=== PATIENT | male | born 1940 | race Caucasian/White ===

== ENCOUNTER 2016-07-09 11:48 | Outpatient (CLI) | payer OTHER | END 2016-07-09 19:56 | disposition home or self-care (01) | LOC: SRD 11:48 | PROVIDERS: ATTEND Internal Medicine | DX: Z01.818 Encounter for other preprocedural examination (principal); C18.9 Malignant neoplasm of colon, unspecified; R05 Cough; M47.899 Other spondylosis, site unspecified; I70.90 Unspecified atherosclerosis | CPT/HCPCS: 71020-TC ==

== ENCOUNTER 2016-07-15 06:43 | Inpatient (IN) | payer OTHER ==
[~2016-07-15] VITALS: Ht 167.6 cm; Wt 59.9 kg
[2016-07-15] MEDS ORDERED: AMLO5TAB4 PO (07:53)
[2016-07-15] MEDS ORDERED: DOXA2TAB PO (07:53)
[2016-07-15] MEDS ORDERED: ASPI-1063 PO (07:53)
[2016-07-15] MEDS ORDERED: LOSA100T11 PO (07:53)
[2016-07-15] MEDS ORDERED: POTA8TAB4 PO (07:53)
[2016-07-15] MEDS ORDERED: PRO20 PO (07:53)
[2016-07-15] MEDS ORDERED: FURO-150 PO (07:53)
[2016-07-15] MEDS ORDERED: LR 1,000 ML IV SCH (10:47)
[2016-07-15] MEDS ORDERED: HYDROmorphone 2 MG/ML VIAL IVP PRN ×2 (11:00)
[2016-07-15] MEDS ORDERED: HYDROmorphone 1 MG INJ. 1 MG/ML AMPUL IVP PRN (11:00)
[2016-07-15] MEDS ORDERED: ONDANSETRON HCL 4 MG/2 ML VIAL IVP PRN ×2 (11:00→14:15)
[2016-07-15] MEDS ORDERED: ePHEDrine sulfate 50 MG/ML VIAL IVP PRN (11:00)
[2016-07-15] MEDS ORDERED: MIDAZOLAM HCL 5 MG/5 ML VIAL ONE (14:00)
[2016-07-15] MEDS ORDERED: ceFAZolin SODIUM 1 GM VIAL ONE (14:00)
[2016-07-15] MEDS ORDERED: NS 100 ML BAG IV ONE (14:00)
[2016-07-15] MEDS ORDERED: SEVOFLURANE 15 MIN GAS INH ONE (14:00)
[2016-07-15] MEDS ORDERED: PROPOFOL 200MG/ 20ML VIAL (DIPRIVAN) IV ONE (14:00)
[2016-07-15] MEDS ORDERED: fentaNYL CITRATE/PF 100 MCG/2 ML AMP ONE (14:00)
[2016-07-15] MEDS ORDERED: BUPIVACAINE LIPOSOME/PF 266 MG/20 ML VIAL INFIL ONE (14:00)
[2016-07-15] MEDS ORDERED: ONDANSETRON HCL 4 MG/2 ML VIAL ONE (14:00)
[2016-07-15] MEDS ORDERED: LR 1,000 ML IV.SOLN IV ONE (14:00)
[2016-07-15] MEDS ORDERED: ACETAMINOPHEN 325 MG TABLET PO PRN ×2 (14:15)
[2016-07-15 14:29] LABS: BASOPHILS % (AUTO) 0.4 % (0.0-2.0); EOSINOPHILS % (AUTO) 0.3 % (0.0-4.0); HEMATOCRIT 26.5 % (36-54); HEMOGLOBIN 8.7 g/dL (14.0-18.0); LYMPHOCYTES # (AUTO) 0.2 K/uL (1.0-5.5); LYMPHOCYTES % (AUTO) 2.7 % (20.5-51.5); MEAN CORPUSCULAR HEMOGLOBIN 26 pg (27-31); MEAN CORPUSCULAR HGB CONC 33 % (32-36); MEAN CORPUSCULAR VOLUME 81 fL (79.0-98.0); MONOCYTES # (AUTO) 0.1 K/uL (0.0-1.0); MONOCYTES % (AUTO) 1.6 % (1.7-9.3); NEUTROPHILS # (AUTO) 8.9 K/uL (1.8-7.7); PLATELET COUNT (AUTO) 307 K/uL (130-430); RED BLOOD CELL COUNT(AUTO) 3.29 MIL/uL (4.2-6.2); RED CELL DISTRIBUTION WIDTH 18.1 % (9.0-15.0); WHITE BLOOD COUNT (AUTO) 9.2 K/uL (4.8-10.8)
[2016-07-15] MEDS ORDERED: ALBUTEROL MDI INHALATION 8 GM INH INH PRN (14:30)
[2016-07-15 15:00] VITALS: BP 140/74; PULSE 78; RESP 17; TEMP 97.4; O2SAT 91
--- NOTE | 2016-07-15 15:14 | NUR ---
post op admission notes: patient to room 124B,report given by palma pacu nurse. placed on o2 2l/,c,good saturation.with small dressing at left x2,mid abd x2 and right x1,intact. no bleeding noted. routine post op vital signs taken.afebrile and stable. with ivf on going at left forearm and right forearm saline lock. patient moaning,will give iv pain meds as ordered.patient situated.
[2016-07-15] MEDS: MORPHINE 4 MG/ML INJ. SYRINGE IVP PRN ×2 (15:41→20:27)
[2016-07-15] MEDS ORDERED: MORPHINE 4 MG/ML INJ. SYRINGE ONE (15:42)
[2016-07-15 15:43] VITALS: BP 140/74; PULSE 78; RESP 17; TEMP 97.4; O2SAT 91
[2016-07-15 16:09] VITALS: BP 154/78; PULSE 71; RESP 17; TEMP 97.8; O2SAT 93
[2016-07-15] MEDS: LR 1,000 ML IV SCH (16:12)
--- NOTE | 2016-07-15 16:30 | NUR ---
ROUNDS: ON O2L/NC,GOOD SATURATION. NO DISTRESS. FAMILY AT BEDSIDE.
[2016-07-15 17:28] VITALS: BP 136/76; PULSE 71
--- NOTE | 2016-07-15 18:25 | NUR ---
CLOSING NOTES: PATIENT REFUSED DINNER FOR NOW. PATIENT WENT BACK TO SLEEP.WILL ENDORSED TO NIGHT NURSE,PT IN STABLE CONDITION.
[2016-07-15] MEDS: ALBUTEROL SULFATE 0.083% 2.5 MG/3 ML VIAL.NEB INH PRN (19:31)
[2016-07-15 19:35] VITALS: BP 151/86; PULSE 83; RESP 18; TEMP 97.6; O2SAT 98
--- NOTE | 2016-07-15 19:35 | NUR ---
INITIAL NOTES; Pt is a/ox4, resting in bed. Vital signs 97.6, 18, 151/86,83,M2WYC=50% 2L N/C OXY. Pt denies any pain,sob,or any acute distress this time. Lung sounds clear throughout all lobes. Drsg cdi of abdominal site. Abdomen soft & nondistended, bs present. IV site of left f/a patent and rt hand patent, no s/s any infiltration noted. IVF LR @ 80ml/hr. Alfred lower pedis present upon palp. Armando cath w/ gravity drains yellow urine output. Fall precaution in place. All safety measures in place. Discussed poc, all safety measures, or if experiencing chest pain, pain,sob, or any acute distress to use call light for assistance, pt verbalized understanding. Encouraged to use Incentive spirometry 10x/hr while awakes, pt demonstrated good teaching back and verbalized understanding. SCD alfred lower extremities. Call light w/in reach. Continue to monitor pt.
--- NOTE | 2016-07-15 20:27 | NUR ---
PAIN MEDICATION ADMINISTERED -Pt is c/o abdominal pain, gave Morphine Sulfate 4mg IVP. Fall precaution in place. All safety measures in place. Call light w/in reach. Continue to monitor pt.
[2016-07-15] MEDS: cefOXitin SODIUM 2 GM in D5W 100 ML IV SCH (21:02)
--- NOTE | 2016-07-15 22:03 | NUR ---
ROUNDS; Pt is resting in bed. No s/s any pain,sob,or any acute distress noted. IV site patent, no s/s any infiltration noted. IVF LR @ 80ml/hr. Armando cath w/ gravity drains yellow urine output. Fall precaution in place. All safety measures in place. Call light w/in reach. Continue to monitor pt.
[2016-07-15] MEDS: HYDROcodone/ACETAMIN 5-325 MG TAB (NORCO/ VICODIN) PO PRN (22:56)
--- NOTE | 2016-07-15 22:56 | NUR ---
PAIN MEDICATION ADMINISTERED -Pt is c/o abdominal pain, gave [place] 5-325mg po. Fall precaution in place. All safety measures in place. Call light w/in reach. Continue to monitor pt.
--- NOTE | 2016-07-15 23:55 | NUR ---
ROUNDS; Pt is resting in bed. Vital signs stable. No s/s any pain,sob,or any acute distress noted. IV site patent, no s/s any infiltration noted. IVF LR @ 80ml/hr. Armando cath w/ gravity drains yellow urine output. Fall precaution in place. All safety measures in place. Call light w/in reach. Continue to monitor pt.
[2016-07-16] VITALS: BP 131/82; PULSE 79; RESP 18; TEMP 98.3; O2SAT 97
[2016-07-16 04:14] VITALS: BP 134/77; PULSE 69; RESP 19; TEMP 97.6; O2SAT 99
[2016-07-16] MEDS: LR 1,000 ML IV SCH ×2 (05:41→21:05)
[2016-07-16] MEDS: cefOXitin SODIUM 2 GM in D5W 100 ML IV SCH ×2 (05:42→14:04)
[2016-07-16] MEDS: MORPHINE 4 MG/ML INJ. SYRINGE IVP PRN (05:42)
--- NOTE | 2016-07-16 05:42 | NUR ---
INCONTINENT OF LARGE SEMISOFT STOOL/ PAIN MEDICATION ADMINISTERED/ REMOVED YOON CATH -Pt is c/o abdominal pain, gave Morphine Sulfate 4mg IVP. Provided perineal care and removed Yoon cath and instructed pt to inform nurse when 1st void, pt verbalized understanding. Now, pt is cleaned and dry. Fall precaution in place. All safety measures in place. Call light w/in reach. Continue to monitor pt.
--- NOTE | 2016-07-16 05:45 | NUR ---
REFUSED TO AMBULATE THIS TIME -ASKED PT TO GET OUT BED AND TO AMBULATE PER MD. PT REFUSED TO GET OUT BED OR TO DANGLE ON BED EVEN AFTER EXPLAINING BENEFITS/RISKS OF AMBULATORY OR GET OUT BED, PT IS STILL REFUSED TO GET OUT BED OR TO DANGLE FEET. PT STATED,'' I'M TOO TIRED AND WEAK TO GET UP.''
--- NOTE | 2016-07-16 07:01 | NUR ---
CLOSING NOTES; Pt is resting in bed. Pt denies any pain,sob,or any acute distress this time. Drsg cdi of abdominal site. IV site of left f/a patent and rt hand patent, no s/s any infiltration noted. IVF LR @ 80ml/hr. Fall precaution in place. All safety measures in place. Call light w/in reach.
--- NOTE | 2016-07-16 08:00 | NUR ---
Rounds to patient. Good affect and color of skin. Patient eating liquid breakfast independently. Says he feels well.
--- NOTE | 2016-07-16 08:16 | NUR ---
Nutrition Update Shantanu Scale 17 noted. Pt admitted for carcinoma in situ colon. Diet: clear liquid, no red BMI: 21.5 kg/m2 RD to follow per nutrition care standards.
[2016-07-16 08:40] LABS: BASOPHILS % (AUTO) 0.1 % (0.0-2.0); HEMATOCRIT 24.5 % (36-54); HEMOGLOBIN 7.8 g/dL (14.0-18.0); LYMPHOCYTES # (AUTO) 0.6 K/uL (1.0-5.5); MEAN CORPUSCULAR HEMOGLOBIN 26 pg (27-31); MEAN CORPUSCULAR HGB CONC 32 % (32-36); MEAN CORPUSCULAR VOLUME 82 fL (79.0-98.0); MONOCYTES % (AUTO) 8.9 % (1.7-9.3); NEUTROPHILS # (AUTO) 9.9 K/uL (1.8-7.7); PLATELET COUNT (AUTO) 278 K/uL (130-430); RED CELL DISTRIBUTION WIDTH 17.9 % (9.0-15.0); WHITE BLOOD COUNT (AUTO) 11.5 K/uL (4.8-10.8)
[2016-07-16 08:53] LABS: ANION GAP 6 (5-15); CHLORIDE 107 mmol/L (98-107); GLUCOSE 108 mg/dL (70-99); POTASSIUM 5.1 mmol/L (3.5-5.1); SODIUM SERUM 140 mmol/L (136-145)
[2016-07-16 08:54] LABS: ALANINE AMINOTRANSFERASE 60 U/L (12-78); ALBUMIN 2.7 g/dL (3.4-4.8); ASPARTATE AMINOTRANSFERASE 52 U/L (10-37); CALCIUM 8.7 mg/dL (8.4-11.0); TOTAL BILIRUBIN 0.5 mg/dL (0.0-1.0); TOTAL PROTEIN, SERUM 6.1 g/dL (6.4-8.3); UREA NITROGEN, BLOOD 27 mg/dL (8-21)
[2016-07-16] MEDS: HYDROcodone/ACETAMIN 5-325 MG TAB (NORCO/ VICODIN) PO PRN ×3 (09:43→21:06)
[2016-07-16] MEDS: DOXAZOSIN MESYLATE 2 MG TABLET PO SCH (09:44)
[2016-07-16] MEDS: amLODIPine BESYLATE 5 MG TABLET PO SCH (09:44)
[2016-07-16] MEDS: FLUoxetine HCL 20 MG CAPSULE (PROzac) PO SCH (09:44)
--- NOTE | 2016-07-16 10:00 | NUR ---
PATIENT ROUNDS. PRN PAIN MED FOLLOW UP. NEEDS MET AT THIS TIME.
[2016-07-16 12:00] VITALS: BP 118/78; PULSE 77; RESP 18; TEMP 99.4; O2SAT 96
--- NOTE | 2016-07-16 12:00 | NUR ---
DOCTOR DANGELO SHERIDAN. ORDERS FOR BLOOD 2 UNITS THIS DAY.
[2016-07-16] MEDS ORDERED: FUROSEMIDE 20 MG/2 ML VIAL IVP ONE (12:30)
--- NOTE | 2016-07-16 14:00 | NUR ---
ROUNDS TO PATIENT. NEEDS MET AT THIS TIME. REFUSED RESPIRATORY INTERVENTION PER BIZ.
--- NOTE | 2016-07-16 15:00 | NUR ---
DOCTOR PRADHAN ROUNDS TO PATIENT. REQUESTS DOCTOR CHILDS PATIENT IS HMO.
[2016-07-16] MEDS ORDERED: ALBUTEROL SULFATE 0.083% 2.5 MG/3 ML VIAL.NEB INH ONE (15:15)
[2016-07-16 16:00] VITALS: BP 119/77; PULSE 80; RESP 16; TEMP 98.4; O2SAT 95
--- NOTE | 2016-07-16 16:00 | NUR ---
AMBULATE PT SIT UP IN BED, STAND UP, TRIED TO AMBULATE BUT STILL WEAK, NOTIFIED DR PIERSON, ORDERED P. THERAPY. VERIFIED ALSO BLOOD ORDERED. TO TRANSFUSE 2 UNIT PRBC.
--- NOTE | 2016-07-16 18:51 | NUR ---
HANDOFF REPORT PREPARED FOR NOC NURSE.
[2016-07-16 19:50] VITALS: BP 121/80; PULSE 80; RESP 18; TEMP 97.5; O2SAT 97
--- NOTE | 2016-07-16 19:50 | NUR ---
INITIAL NOTES; Pt is a/ox4, resting in bed. Vital signs 97.5, 18, 121/80, 80, C3IVN=59% 2L N/C OXY. Pt denies any pain,sob,or any acute distress this time. Lung sounds clear throughout all lobes. Drsg cdi of abdominal site. Abdomen soft & nondistended, bs present. IV site of left f/a patent and rt hand patent, no s/s any infiltration noted. IVF LR @ 80ml/hr. Alfred lower pedis present upon palp. Urinal is at bedside. Fall precaution in place. All safety measures in place. Discussed poc, all safety measures, or if experiencing chest pain, pain,sob, or any acute distress to use call light for assistance, pt verbalized understanding. Encouraged to use Incentive spirometry 10x/hr while awakes, pt demonstrated good teaching back and verbalized understanding. SCD alfred lower extremities. Call light w/in reach. Continue to monitor pt.
--- NOTE | 2016-07-16 23:20 | NUR ---
BT INITIATION: 1ST BLOOD PRBC TRANSFUSION Consent signed per patient agreeing to administration of blood. Blood has been type and crossmatched. Blood sent from blood bank. Information on unit of blood checked against patient wristband at bedside by two nurses. All information matches. Patient or responsible constitution party informed of potential complications associated with blood transfusion. Informed of possible transfusion reaction symptoms. Aware of need to notify nurse at once of itching, shortness of breath, flushing, feeling of impending doom, or other symptoms not previously present. Vital signs taken within 5 minutes prior to initiation of transfusion (97.8, 18,67, 123/69, s9msy=20%). RN will remain with patient for first 15 minutes of transfusion at which time vital signs will be re-assessed.
--- NOTE | 2016-07-16 23:35 | NUR ---
POST 15 MINS OF BLOOD TRANSFUSION -Pt denies any itching, shortness of breath, flushing, feeling of impending doom, or other symptoms not previously present. No s/s any blood complication noted. Vital signs taken after 15 minutes of transfusion (97.0, 18,70, 124/74, f0ied=35%). Call light w/in reach. Continue to monitor pt.
--- NOTE | 2016-07-17 00:35 | NUR ---
ROUNDS; 1ST PRBC IS STILL INFUSING Pt is resting in bed. No s/s any blood complication noted. No s/s any pain,sob,or any acute distress noted. IV site patent, no s/s any infiltration noted. Fall precaution in place. All safety measures in place. Call light w/in reach. Continue to monitor pt.
[2016-07-17 01:05] VITALS: BP 124/74; PULSE 70; RESP 16; TEMP 97; O2SAT 96
--- NOTE | 2016-07-17 01:35 | NUR ---
ROUNDS; 1ST PRBC COMPLETED Pt is resting in bed. Vital signs stable 147/83, 97.0, 95, 20, o0mof=280 2 L n/c oxy. No s/s any rxn or complication noted. Pt denies itchiness, any pain,sob,or any acute distress noted. IV site patent, no s/s any infiltration noted. Fall precaution in place. All safety measures in place. Call light w/in reach. Continue to monitor pt.
[2016-07-17] MEDS ORDERED: FUROSEMIDE 20 MG/2 ML VIAL ONE (01:55)
--- NOTE | 2016-07-17 01:55 | NUR ---
LASIX 20 MG IVP X1 GIVEN AFTER 1ST UNIT OF PRBC PER MD ORDERED. PU=650/83, 95.
--- NOTE | 2016-07-17 02:50 | NUR ---
BT INITIATION: 2ND PRBC TRANSFUSION Consent signed per patient agreeing to administration of blood. Blood has been type and crossmatched. Blood sent from blood bank. Information on unit of blood checked against patient wristband at bedside by two nurses. All information matches. Patient or responsible libertarian informed of potential complications associated with blood transfusion. Informed of possible transfusion reaction symptoms. Aware of need to notify nurse at once of itching, shortness of breath, flushing, feeling of impending doom, or other symptoms not previously present. Vital signs taken within 5 minutes prior to initiation of transfusion (97.5, 18, 75, 123/78, m9zzy=52%). RN will remain with patient for first 15 minutes of transfusion at which time vital signs will be re-assessed.
--- NOTE | 2016-07-17 03:05 | NUR ---
POST 15 MINS OF BLOOD TRANSFUSION -Pt denies any itching, shortness of breath, flushing, feeling of impending doom, or other symptoms not previously present. No s/s any blood complication noted. Vital signs taken after 15 minutes of transfusion (97.8,18, 133/96, 72, e5qvt=93%). Call light w/in reach. Continue to monitor pt.
[2016-07-17 04:52] VITALS: BP 151/88; PULSE 76; RESP 18; TEMP 98; O2SAT 97
--- NOTE | 2016-07-17 05:20 | NUR ---
ROUNDS; 2ND UNIT OF PRBC COMPLETED Pt is resting in bed. Vital signs stable 97.8, 18,68,146/84, q8con=74% 2 L n/c oxy. No s/s any rxn or complication noted. Pt denies itchiness, any pain,sob,or any acute distress noted. IV site patent, no s/s any infiltration noted. Fall precaution in place. All safety measures in place. Call light w/in reach. Continue to monitor pt.
--- NOTE | 2016-07-17 06:50 | NUR ---
CLOSING NOTES; Pt is resting in bed. Pt denies any pain,sob,or any acute distress this time. IV site of left f/a and rt hand patent, no s/s any infiltration noted. IVF LR @ 80ml/hr. Urinal is at bedside. Fall precaution in place. All safety measures in place. SCD bonifacio lower extremities. Call light w/in reach.
[2016-07-17 07:32] LABS: BASOPHILS % (AUTO) 0.3 % (0.0-2.0); EOSINOPHILS # (AUTO) 0.1 K/uL (0.0-0.4); EOSINOPHILS % (AUTO) 1.6 % (0.0-4.0); HEMATOCRIT 30.5 % (36-54); HEMOGLOBIN 9.8 g/dL (14.0-18.0); LYMPHOCYTES # (AUTO) 0.9 K/uL (1.0-5.5); LYMPHOCYTES % (AUTO) 9.2 % (20.5-51.5); MEAN CORPUSCULAR HEMOGLOBIN 27 pg (27-31); MEAN CORPUSCULAR HGB CONC 32 % (32-36); MEAN CORPUSCULAR VOLUME 83 fL (79.0-98.0); MONOCYTES # (AUTO) 0.9 K/uL (0.0-1.0); MONOCYTES % (AUTO) 9.2 % (1.7-9.3); NEUTROPHILS # (AUTO) 7.4 K/uL (1.8-7.7); NEUTROPHILS % (AUTO) 79.7 % (40.0-70.0); PLATELET COUNT (AUTO) 271 K/uL (130-430); RED BLOOD CELL COUNT(AUTO) 3.66 MIL/uL (4.2-6.2); RED CELL DISTRIBUTION WIDTH 16.2 % (9.0-15.0); WHITE BLOOD COUNT (AUTO) 9.3 K/uL (4.8-10.8)
[2016-07-17 07:53] LABS: ALANINE AMINOTRANSFERASE 56 U/L (12-78); ALBUMIN 2.7 g/dL (3.4-4.8); ANION GAP 6 (5-15); ASPARTATE AMINOTRANSFERASE 41 U/L (10-37); CALCIUM 8.7 mg/dL (8.4-11.0); CHLORIDE 106 mmol/L (98-107); CREATININE 1.36 mg/dL (0.55-1.30); GLUCOSE 80 mg/dL (70-99); POTASSIUM 3.6 mmol/L (3.5-5.1); SODIUM SERUM 141 mmol/L (136-145); TOTAL BILIRUBIN 0.3 mg/dL (0.0-1.0); TOTAL PROTEIN, SERUM 6.1 g/dL (6.4-8.3); UREA NITROGEN, BLOOD 21 mg/dL (8-21)
[2016-07-17 08:00] VITALS: BP 136/73; PULSE 60; RESP 18; TEMP 97.2; O2SAT 96
--- NOTE | 2016-07-17 08:00 | NUR ---
INITIAL NOTE PT LYING IN BED, RESTING, EASY TO AROUSE, ALERT AND ORIENTED X4, NO S/S OF DISTRESS OR COMPLAINT OF PAIN AT THIS TIME, NASAL CANULA NOTED WITH O2 AT 2L, VSS, 5 SMALL DRESSING NOTED TO ABDOMEN, CLEAN DRY AND INTACT. IV SITE TO RIGHT FOREARM PATENT, SALINE LOCK. IV SITE TO LEFT FOREARM PATENT, AND INFUSING, NO S/S OF INFILTRATION NOTED. URINAL AT BEDSIDE, PT REORIENTED TO USE OF CALL LIGHT AND IT IS PLACED WITHIN REACH, SAFETY MEASURES IN PLACE, BED IN LOW POSITION, WILL FOLLOW UP
[2016-07-17] MEDS: DOXAZOSIN MESYLATE 2 MG TABLET PO SCH (08:38)
[2016-07-17] MEDS: FLUoxetine HCL 20 MG CAPSULE (PROzac) PO SCH (08:39)
[2016-07-17] MEDS: HYDROcodone/ACETAMIN 5-325 MG TAB (NORCO/ VICODIN) PO PRN (08:39)
[2016-07-17] MEDS: amLODIPine BESYLATE 5 MG TABLET PO SCH (08:39)
[2016-07-17] MEDS: ALBUTEROL SULFATE 0.083% 2.5 MG/3 ML VIAL.NEB INH SCH ×3 (09:05→21:31)
--- NOTE | 2016-07-17 09:19 | NUR ---
PATIENT UP WITH PHYSICAL THERAPY.
--- NOTE | 2016-07-17 11:00 | NUR ---
ROUNDS PT RESTING IN BED, DENIES ANY PAIN AT THIS TIME, NO S/S OF DISTRESS NOTED, PT STATES HE HAS NO NEEDS AT THIS TIME, SAFETY MEASURES IN PLACE, WILL FOLLOW UP.
[2016-07-17 12:48] VITALS: BP 142/87; PULSE 75; RESP 16; TEMP 98.1; O2SAT 97
--- NOTE | 2016-07-17 12:50 | NUR ---
DR DANGELO FONTAINE
--- NOTE | 2016-07-17 13:21 | NUR ---
ROUNDS PT LYING IN BED, INQUIRED TO WHETHER HE WAS IN PAIN, PT STATED THE PAIN WAS TOLERABLE AT THE MOMENT, 08/15. PT EDUCATED REGARDING PAIN MANAGEMENT, PT DECLINED PAIN MEDICATION AT THIS TIME, WILL FOLLOW UP. NEEDS ATTENDED TO, SAFETY MEASURES IN PLACE, BED IN LOW POSITION, CALL LIGHT WITHIN REACH, WILL FOLLOW UP.
[2016-07-17] MEDS: cefOXitin SODIUM 2 GM in D5W 100 ML IV SCH ×2 (16:25→22:59)
--- NOTE | 2016-07-17 16:35 | NUR ---
ROUNDS PT ASSISTED TO RESTROOM, AMBULATE WITH ASSIST, UNSTEADY GAIT NOTED. NEEDS ATTENDED TO, NO S/S OF DISTRESS, PT RETURNED TO BED, BED IN LOW POSITION, SAFETY MEASURES IN PLACE, CALL LIGHT WITHIN REACH, WILL FOLLOW UP.
[2016-07-17 18:16] VITALS: BP 130/76; PULSE 60; RESP 16; TEMP 98.2; O2SAT 95
--- NOTE | 2016-07-17 18:30 | NUR ---
CLOSING NOTE PT LYING IN BED, VSS, NASAL CANULA IN PLACE, IV INFUSING TO LET FOREARM, IV SITE PATENT, NO S/ OF INFILTRATION NOTED. ALL NEEDS ATTENDED TO THROUGH SHIFT. SAFETY MEASURES AND FALL PRECAUTIONS IN PLACE, BED IN LOW POSITION, CALL LIGHT WITHIN REACH, WILL GIVE REPORT TO ONCOMING SHIFT.
[2016-07-17 19:35] VITALS: BP 143/83; PULSE 79; RESP 20; TEMP 97.1; O2SAT 95
--- NOTE | 2016-07-17 19:35 | NUR ---
INITIAL NOTES; Pt is a/ox4, resting in bed. Vital signs 97,1, 79, 143/85, 20, W6ODQ=33% 2 L n/c oxy. Pt denies any pain,sob,or any acute distress this time. Lung sounds clear throughout all lobes. Drsg cdi of abdominal site. Abdomen soft & nondistended, bs present. IV site of left f/a patent and rt hand patent, no s/s any infiltration noted. IVF LR @ 80ml/hr. Alfred lower pedis present upon palp. Urinal is at bedside. Fall precaution in place. All safety measures in place. Discussed poc, all safety measures, or if experiencing chest pain, pain,sob, or any acute distress to use call light for assistance, pt verbalized understanding. Encouraged to use Incentive spirometry 10x/hr while awakes, pt demonstrated good teaching back and verbalized understanding. SCD alfred lower extremities. Call light w/in reach. Continue to monitor pt.
[2016-07-17] MEDS: LR 1,000 ML IV SCH (20:18)
[2016-07-17] MEDS: HYDROcodone/ACETAMIN 10-325 MG TAB PO PRN (20:19)
--- NOTE | 2016-07-17 20:19 | NUR ---
PAIN MEDICATION ADMINISTERED -Pt is c/o abdominal pain, gave [place] po. Fall precaution in place. All safety measures in place. Call light w/in reach. Continue to monitor pt.
--- NOTE | 2016-07-17 22:59 | NUR ---
ROUNDS; Pt is resting in bed. Pt denies itchiness, any pain,sob,or any acute distress noted. IV site patent, no s/s any infiltration noted. Fall precaution in place. All safety measures in place. Call light w/in reach. Continue to monitor pt.
[2016-07-18] VITALS (9 sets, daily range): BP systolic 122–155; BP diastolic 80–95; PULSE 61–98; RESP 16–18; TEMP 96.3–99.2; O2SAT 90–98; Ht 167.6 cm; Wt 59.9 kg
--- NOTE | 2016-07-18 01:09 | NUR ---
ROUNDS; Pt is resting in bed. No s/s any pain,sob,or any acute distress noted. IV site patent, no s/s any infiltration noted. Fall precaution in place. All safety measures in place. Call light w/in reach. Continue to monitor pt.
--- NOTE | 2016-07-18 03:47 | NUR ---
ROUNDS; ASSISTANCE WITH BATHROOM -Pt had large bowel movt. Assisting pt with bathroom and returned to bed safely. Pt denies any pain,sob,or any acute distress noted. Fall precaution in place. All safety measures in place. Call light w/in reach. Continue to monitor pt.
[2016-07-18] MEDS: LR 1,000 ML IV SCH ×2 (04:36→12:35)
[2016-07-18] MEDS: cefOXitin SODIUM 2 GM in D5W 100 ML IV SCH (05:10)
--- NOTE | 2016-07-18 05:57 | NUR ---
ROUNDS; -Pt is resting. No s/s any pain,sob,or any acute distress noted. Fall precaution in place. All safety measures in place. Call light w/in reach. Continue to monitor pt.
--- NOTE | 2016-07-18 06:40 | NUR ---
CLOSING NOTES; Pt is resting in bed. No s/s any pain,sob,or any acute distress noted. Drsg cdi of abdominal site. IV site of left f/a patent and rt hand patent, no s/s any infiltration noted. IVF LR @ 80ml/hr. Urinal is at bedside. Fall precaution in place. All safety measures in place. SCD bonifacio lower extremities. Call light w/in reach.
--- NOTE | 2016-07-18 08:04 | NUR ---
INITIAL NOTE PT LYING IN BED, RESTING, EASY TO AROUSE, ALERT AND ORIENTED X4, VSS, NO S/S OF DISTRESS OR DISCOMFORT AT THIS TIME, NASAL CANULA NOTED WITH O2 AT 2L, SEVERAL SMALL DRESSING NOTED TO ABDOMEN, CLEAN DRY AND INTACT. IV SITE TO RIGHT HAND AND LEFT FOREARM PATENT, NO S/S OF INFILTRATION NOTED, SCDS IN PLACE. SAFETY MEASURES IN PLACE, PT REORIENTED TO USE OF CALL LIGHT AND IT IS PLACED WITHIN REACH, BED IN LOW POSITION, WILL FOLLOW UP.
[2016-07-18] MEDS: FLUoxetine HCL 20 MG CAPSULE (PROzac) PO SCH (08:55)
[2016-07-18] MEDS: HYDROcodone/ACETAMIN 5-325 MG TAB (NORCO/ VICODIN) PO PRN (08:56)
[2016-07-18] MEDS: amLODIPine BESYLATE 5 MG TABLET PO SCH (08:57)
[2016-07-18] MEDS: DOXAZOSIN MESYLATE 2 MG TABLET PO SCH (08:57)
[2016-07-18] MEDS: ALBUTEROL SULFATE 0.083% 2.5 MG/3 ML VIAL.NEB INH SCH (09:42)
--- NOTE | 2016-07-18 10:00 | NUR ---
ROUNDS PT SITTING UP IN BED, FAMILY AT BEDSIDE, NO S/S OF DISTRESS OR COMPLAINT OF PAIN AT THIS TIME, NEEDS ATTENDED TO, SAFETY MEASURES IN PLACE, CALL LIGHT WITHIN REACH, WILL FOLLOW UP
--- NOTE | 2016-07-18 12:38 | NUR ---
FAMILY AT BEDSIDE, PATIENT SITTING IN BEDSIDE CHAIR HAVING LUNCH, NO S/S OF DISTRESS OR COMPLAINT OF PAIN, VSS, REMINDED PATIENT TO ASK FOR ASSISTANCE WHEN RETURNING TO BED, PT VERBALIZED UNDERSTANDING, WILL FOLLOW UP
--- NOTE | 2016-07-18 13:25 | NUR ---
DR PIERSON MAKING ROUNDS
--- NOTE | 2016-07-18 14:30 | NUR ---
Discharge Planning: As requested by RN, call was placed to the pt's trimming caser Annie regarding discharge planning orders for DME and home health. Voicemail was left for Annie to return the call. Will follow up.
[2016-07-18 14:49] LABS: BASOPHILS % (AUTO) 0.2 % (0.0-2.0); EOSINOPHILS # (AUTO) 0.2 K/uL (0.0-0.4); EOSINOPHILS % (AUTO) 2.2 % (0.0-4.0); HEMATOCRIT 32.2 % (36-54); HEMOGLOBIN 10.2 g/dL (14.0-18.0); LYMPHOCYTES # (AUTO) 0.6 K/uL (1.0-5.5); LYMPHOCYTES % (AUTO) 8.1 % (20.5-51.5); MEAN CORPUSCULAR HEMOGLOBIN 27 pg (27-31); MEAN CORPUSCULAR HGB CONC 32 % (32-36); MEAN CORPUSCULAR VOLUME 84 fL (79.0-98.0); MONOCYTES # (AUTO) 0.7 K/uL (0.0-1.0); MONOCYTES % (AUTO) 8.7 % (1.7-9.3); NEUTROPHILS # (AUTO) 6.1 K/uL (1.8-7.7); NEUTROPHILS % (AUTO) 80.8 % (40.0-70.0); PLATELET COUNT (AUTO) 302 K/uL (130-430); RED BLOOD CELL COUNT(AUTO) 3.85 MIL/uL (4.2-6.2); RED CELL DISTRIBUTION WIDTH 16.1 % (9.0-15.0); WHITE BLOOD COUNT (AUTO) 7.6 K/uL (4.8-10.8)
[2016-07-18 15:04] LABS: ANION GAP 5 (5-15); CALCIUM 9.2 mg/dL (8.4-11.0); CHLORIDE 108 mmol/L (98-107); CREATININE 1.33 mg/dL (0.55-1.30); GLUCOSE 94 mg/dL (70-99); POTASSIUM 3.7 mmol/L (3.5-5.1); SODIUM SERUM 145 mmol/L (136-145); UREA NITROGEN, BLOOD 19 mg/dL (8-21)
--- NOTE | 2016-07-18 15:15 | NUR ---
Discharge Planning: Call was received from LIAM Valencia stating that she spoke with the pt this morning and per Annie she asked the pt if he required any DME. The pt stated that he has all DME that he will need. Annie will set up home health. Will endorse to RN.
--- NOTE | 2016-07-18 15:47 | NUR ---
DISCHARGE PLANNING NOTE: BROADCAST TRANSMITTER OPERATOR called PA Grinding Operator, Annie ([phone]), and left a voice mail to inform her that that pt has a discharge planning order stating that pt may need durable equipment and home nurse visits for wellness checks and med compliance.
[2016-07-18] MEDS ORDERED: ALBU2.5V7 INH (16:33)
[2016-07-18] MEDS ORDERED: HYDR-1189 PO (16:33)
--- NOTE | 2016-07-18 17:20 | NUR ---
Discharge Planning: Call was received from LIAM Valencia stating that she has received a call from Dr Russ to discharge the pt to [facility] ([facility]) room 306 A, nurse to nurse report number is [phone]. [facility] ambulance has been arranged for 20:30 BLS transport. Chart has been copied. Annie has informed the pt's son. Will endorse to RN.
--- NOTE | 2016-07-18 19:30 | NUR ---
GAVE REPORT TO RECEIVING NURSE CH FROM [facility], ALBERTO WILL BE TRANSFERRED TO ROOM 306A.
--- NOTE | 2016-07-18 19:45 | NUR ---
CLOSING NOTE SEVERAL FAMILY MEMBERS AT BEDSIDE, PATIENT RECEIVING BREATHING TREATMENT AT THIS TIME, SEEMS ANXIOUS FOR TRANSFER, VSS, SAFTY MEASURES IN PLACE, WILL GIVE REPORT TO FOLLOWING SHIFT REGARDING DISCHARGE TO [facility] AND ESTIMATED SONG LYRICIST AT 830.
[2016-07-18] MEDS: ALBUTEROL SULFATE 0.083% 2.5 MG/3 ML VIAL.NEB INH PRN (19:57)
[2016-07-18] MEDS: HYDROcodone/ACETAMIN 10-325 MG TAB PO PRN (20:31)
--- NOTE | 2016-07-18 20:45 | NUR ---
pt.transferred from the unit.pt.transferred to [facility].i have reviewed the pt's belongings:eye glasses ,dentures: upper/lower,transitor radio:[employer].day shift nsgL:peg conveyed pt's info/data to [facility] facility.peg prepared the paper work:trnasfer packet.i reviewed the pt's id band:white w/ pt's name,.correct.pt's info/data conveyed to transfer/ambulance team.pt.requested pain medication p/t.i administered norco:10/325mg 1 tab po per pt's request.
== END 2016-07-18 21:10 | DRG 418 ==
LOC: SDS 06:43 → SMU 10:52 → SDS 15:26 → SMU 15:27
PROVIDERS: ADMIT Surgery; ATTEND Surgery
PROC: 30233N1 Transfusion of Nonautologous Red Blood Cells into Peripheral Vein, Percutaneous Approach (ICD-10-PCS; principal; 2016-07-15 10:00)
PROC: 0DTF4ZZ Resection of Right Large Intestine, Percutaneous Endoscopic Approach (ICD-10-PCS; 2016-07-18)
PROC: 0FT44ZZ Resection of Gallbladder, Percutaneous Endoscopic Approach (ICD-10-PCS; 2016-07-18)
PROC: 8E0W4CZ Robotic Assisted Procedure of Trunk Region, Percutaneous Endoscopic Approach (ICD-10-PCS; 2016-07-18)
DX: K80.00 Calculus of gallbladder with acute cholecystitis without obstruction (principal); C18.2 Malignant neoplasm of ascending colon; E44.1 Mild protein-calorie malnutrition; K66.0 Peritoneal adhesions (postprocedural) (postinfection); D64.9 Anemia, unspecified; I10 Essential (primary) hypertension; J45.909 Unspecified asthma, uncomplicated; Z86.73 Personal history of transient ischemic attack (TIA), and cerebral infarction without residual deficits; Z68.21 Body mass index [BMI] 21.0-21.9, adult
CPT/HCPCS: 36415; 80048; 80053; 85025; 86886; 86900; 86901; 86920; 87081; 88304; 88307; 88309; 94010; 94640; 94760; 97116-GP; 97530-GP; C1727; C9290; J0690; J0694; J1940; J2250; J2270; J2405; J2704; J3010; J7050; J7060; J7120; P9021